=== PATIENT | female | born 1985 | race Caucasian/White ===

== ENCOUNTER 2019-05-01 23:57 | Emergency (ER) | payer MEDICAID ==
--- NOTE | 2019-05-02 | ER Report ---
History and Physical Time Seen By MD: 23:56 HPI/ROS CHIEF COMPLAINT: Anxiety, medication withdrawal HISTORY OF PRESENT ILLNESS: 34-year-old female from [place] ran out of her Xanax and gabapentin. She is traveling with her is a gasoline truck operator. They were detained in [place] for over a week. She did not bring enough medication. She's been having anxiety, and medication withdrawal symptoms. She took half doses yesterday and has run out. Patient notes anxiety and headache and agitation. REVIEW OF SYSTEMS: Respiratory: No cough, no dyspnea. Cardiovascular: No chest pain, no palpitations. Gastrointestinal: No vomiting, no abdominal pain. Musculoskeletal: No back pain. Allergies: Coded Allergies: No Known Drug Allergies (Unverified , 05/02/19) Home Meds Active Scripts Alprazolam (XANAX) 2 Mg Tablet, 1 TAB PO BID PRN for anxiety, #6 TAB Prov:MIREILLETRENT DO 05/02/19 Gabapentin (NEURONTIN) 800 Mg Tab, 800 MG PO TID for anxiety, #9 TAB Prov:TRENT KENDRICK DO 05/02/19 Alprazolam (XANAX) 0.5 Mg Tablet, 2 TAB PO BID for anxiety, #6 TAB Prov:TRENT KENDRICK DO 05/02/19 Reported Medications Gabapentin (NEURONTIN) 800 Mg Tab, 800 MG PO QID, TAB 05/02/19 Alprazolam (XANAX) 0.5 Mg Tablet, 2 MG PO BID, TAB 05/02/19 Reviewed Nurses Notes: Yes Old Medical Records Reviewed: Yes Constitutional Vital Sign - Last 24 Hours 05/02/19 00:01 Temp 97.8 Pulse 103 Resp 16 B/P (MAP) 149/97 Pulse Ox 94 O2 Delivery Room Air Physical Exam General Appearance: The patient is alert, has no immediate need for airway protection and no current signs of toxicity. Vital signs stable, afebrile, pulse ox normal Eyes: Pupils equal and round no injection. Respiratory: Chest is non tender, lungs are clear to auscultation. Cardiac: regular rate and rhythm Gastrointestinal: Abdomen is soft and non tender, no masses, bowel sounds normal. Musculoskeletal: Neck: Neck is supple and non tender. Extremities have full range of motion and are non tender. Skin: No rashes or lesions. DIFFERENTIAL DIAGNOSIS: After history and physical exam differential diagnosis was considered for depression including functional and major depression, situational depression, medication side effect, medication withdrawal, drugs and alcohol abuse. Medical Decision Making ED Course/Re-evaluation ED Course Patient was admitted to an examination room. H&P was done. The differential diagnoses was considered. On conical examination, patient appears to have anxi ety and withdrawal from her medication. She is provided with enough medication to get her through 3 days. She is advised to follow-up with her primary care upon returning home. Decision to Disposition Date: May 02, 2019 Decision to Disposition Time: 00:08 Depart Departure Latest Vital Signs Vital Signs Date Time Temp Pulse Resp B/P (MAP) Pulse Ox O2 Delivery O2 Flow Rate FiO2 05/02/19 00:01 97.8 103 16 149/97 94 Room Air Impression: Primary Impression: Anxiety Condition: Improved Disposition: HOME OR SELF-CARE New Scripts Alprazolam (XANAX) 2 Mg Tablet 1 TAB PO BID PRN for anxiety, #6 TAB Prov: TRENT KENDRICK DO 05/02/19 Gabapentin (NEURONTIN) 800 Mg Tab 800 MG PO TID for anxiety, #9 TAB Prov: TRENT KENDRICK DO 05/02/19 Alprazolam (XANAX) 0.5 Mg Tablet 2 TAB PO BID for anxiety, #6 TAB Prov: TRENT KENDRICK DO 05/02/19 Patient Instructions: Anxiety (ED) Additional Instructions: Follow-up with your primary care doctor upon returning home TRENT KENDRICK DO May 02, 2019 00:00
[2019-05-02 00:01] VITALS: BP 149/97
[2019-05-02] MEDS ORDERED: ALPR-429 PO ×2 (00:07→00:14)
[2019-05-02] MEDS ORDERED: GAB800PT PO ×2 (00:07→00:14)
[2019-05-02] MEDS ORDERED: GABAPENTIN 300 MG CAP PO ONE (00:15)
[2019-05-02] MEDS ORDERED: ALPRAZolam 1 MG TAB PO ONE (00:15)
[2019-05-02] MEDS ORDERED: ALPR-436 PO (00:41)
== END 2019-05-02 00:24 | disposition home or self-care (01) ==
LOC: ER 05-02 00:01
DX: F41.9 Anxiety disorder, unspecified (principal)
CPT/HCPCS: 99283